=== PATIENT | male | born 1955 | race Caucasian/White ===

== ENCOUNTER 2019-12-05 07:30 | Day surgery (SDC) | payer MEDICARE ==
[~2019-12-05] VITALS: Ht 172.7 cm; Wt 80.1 kg
[~2019-12-05 07:30] MED LIST: NAPR500 PO; RXCODACET PO
--- NOTE | 2019-12-05 08:37 | NUR ---
Ambulatory in Day Surgery. Patient states colon prep results clear. History, Chart, Medications and Allergies reviewed before start of procedure. Lungs clear T/O to Auscultation. Patient confirms NPO status and agrees with scheduled surgery. Patient States Post-Procedure ride home has been arranged.
--- NOTE | 2019-12-05 08:54 | NUR ---
12/05/19 0854 Mahesh Solorzano History, Chart, Medications and Allergies reviewed before start of procedure.MONITOR INTACT WITH CONTINUOUS PULSE OXIMETRY AND INTERMITTENT BP.3-LEAD EKG REVIEWED WITH PHYSICIAN PRIOR TO START OF PROCEDURE.O2 VIA N/C INTACT THROUGHOUT SEDATION/PROCEDURE. PATIENT DETERMINED TO BE ASA APPROPRIATE FOR PROPOFOL SEDATION PRIOR TO START OF PROCEDURE BY DR. CASTAÑEDA.
--- NOTE | 2019-12-05 09:28 | NUR ---
Patient up to Ambulate independently. Gait steady. Lungs clear T/O to Auscultation. Patient States Post-Procedure ride home has been arranged. With partner Radha.
--- NOTE | 2019-12-05 09:38 | NUR ---
Discharged via wheelchair to private car for ride home.
== END 2019-12-05 22:42 | disposition home or self-care (01) ==
LOC: ORSCMMR 07:30 → ORD 08:30 → ORSCMMR 08:30
PROVIDERS: Internal Medicine Gastroenterology
PROC: 0DBN8ZX Excision of Sigmoid Colon, Via Natural or Artificial Opening Endoscopic, Diagnostic (ICD-10-PCS; principal; 2019-12-05 08:30)
DX: Z12.11 Encounter for screening for malignant neoplasm of colon (principal); Z86.010 Personal history of colon polyps; K63.5 Polyp of colon; K64.8 Other hemorrhoids
CPT/HCPCS: 88305; J0461; J2704; J7120

== ENCOUNTER 2025-07-24 07:07 | Day surgery (SDC) | payer MEDICARE ==
[~2025-07-24] VITALS: Ht 170.2 cm; Wt 79.7 kg
[2025-07-24] VITALS (17 sets, daily range): BP systolic 102–144; BP diastolic 59–97
[~2025-07-24 07:07] MED LIST changes: +ATOR10; +TAMS.4ER PO
--- NOTE | 2025-07-24 07:58 | NUR ---
History, Chart, Medications and Allergies reviewed before start of procedure. Patient States Post-Procedure ride home has been arranged.
[2025-07-24] MEDS ORDERED: Glycopyrrolate 0.2 MG/ML 1MLVIAL ONE (08:46)
--- NOTE | 2025-07-24 08:53 | NUR ---
07/24/25 0853 Brionna Davis CONFIRMED AND REVIEWED H&P, MEDCICATIONS, ALLERGIES, MEDICAL HISTORY, RESPIRATORY HISTORY, VITAL SIGNS, 3-LEAD EKG, CONSENTS, AND PHYSICIAN ORDERS. PATIENT CONFIRMS NPO STATUS AND AGREES WITH SCHEDULED PROCEDURE. MONITOR INTACT WITH CONTINUOUS PULSE OXIMETRY, CAPNOGRAPHY, 3-LEAD EKG, INTERMITTENT BP. SUPPLEMENTAL O2 TO BE TITRATED THROUGHOUT PROCEDURE TO MAINTAIN O2 SATURATION ABOVE 90%. PATIENT DETERMINED TO BE ASA APPROPRIATE FOR PROPOFOL SEDATION PRIOR TO START OF PROCEDURE BY DR. CASTAÑEDA
--- NOTE | 2025-07-24 09:34 | NUR ---
Patient up to Ambulate independently. Gait steady. Discharge instructions reviewed with patient. Patient verbalizes understanding. Copy given to patient to take home. PT TOLERATING PO A&O X4. Discharged via wheelchair to private car for ride home WITH .
== END 2025-07-24 23:00 | disposition home or self-care (01) ==
LOC: ORSCMMR 07:07 → ORD 08:15 → ORSCMMR 23:00
PROVIDERS: Internal Medicine Gastroenterology
PROC: 0DBK8ZX Excision of Ascending Colon, Via Natural or Artificial Opening Endoscopic, Diagnostic (ICD-10-PCS; principal; 2025-07-24 08:15)
PROC: 0DBH8ZX Excision of Cecum, Via Natural or Artificial Opening Endoscopic, Diagnostic (ICD-10-PCS; principal; 2025-07-24 08:15)
DX: Z12.11 Encounter for screening for malignant neoplasm of colon (principal); Z86.0101 Personal history of adenomatous and serrated colon polyps; K51.40 Inflammatory polyps of colon without complications; D12.2 Benign neoplasm of ascending colon; C61 Malignant neoplasm of prostate; N40.0 Benign prostatic hyperplasia without lower urinary tract symptoms; E78.00 Pure hypercholesterolemia, unspecified; Z79.899 Other long term (current) drug therapy
CPT/HCPCS: 88305; J0461; J2704; J7120